=== PATIENT | female | born 1955 | race American Indian/Alaskan Native ===

== ENCOUNTER 2021-07-30 10:30 | Outpatient (CLI) | payer MEDICARE ==
--- NOTE | 2021-08-03 10:25 | Mammography Report ---
DIGITAL SCREENING MAMMOGRAM WITH CAD, 07/30/2021 CLINICAL INFORMATION / INDICATION: Routine screening mammography TECHNIQUE: Digital 2D mammography was obtained in the craniocaudal and mediolateral oblique projectio ns. This examination was interpreted with the benefit of Computer-Aided Detection analysis. COMPARISON: 01/06/2020 FINDINGS: Breast Density: The breasts are heterogeneously dense, which may obscure small masses. No dominant mass, suspicious calcifications, or architectural distortion in the right breast. 9 appearing calcifications and most nodularity in the left breast are stable. On cc view only in the far posterior medial left breast, 10 to 11 cm from the nipple, a 6 mm rounded density is seen which was not obvious on the prior study though possibly this area was not fully incl uded previously. IMPRESSION: Possible new nodule on the left, possibly a small lymph node Follow up recommendation: Left spot magnification views and ultrasound if needed BI-RADS Category 0: INCOMPLETE. Needs additional imaging evaluation and/or prior mammograms for sophei mataon. A "normal" or negative report should not discourage follow up or biopsy of a clinically significant f inding. A written summary of these findings will be mailed to the patient. The patient will be entered into a mammography reporting system which will generate a reminder letter for the patient's next appointmen t at the appropriate interval. [employer] recommends yearly mammograms starting at age 40 and continuing as l noris as a woman is in good health. Breast MRI is recommended for women with an approximate 20-25% or greater lifetime risk of breast cancer, including women with a strong family history of breast or ova celestino cancer or who have been treated for Hodgkin's disease. Signer Name: Matias Walker MD Signed: 08/03/2021 10:21 AM Workstation Name: [email or web address]
== END 2021-07-30 10:31 | disposition home or self-care (01) ==
LOC: MAMMO 10:30
PROVIDERS: ATTEND Internal Medicine
DX: Z12.31 Encounter for screening mammogram for malignant neoplasm of breast (principal)
CPT/HCPCS: 77067